=== PATIENT | female | born 1955 | race Caucasian/White ===

== ENCOUNTER 2021-10-30 11:34 | Emergency (ER) | payer MEDICARE ==
--- NOTE | 2021-10-30 12:03 | EDM.PDOC ---
ED HPI GENERAL MEDICAL PROBLEM - General Chief Complaint: General Stated Complaint: BODY ACHES, NO TASTE,NO SMELL Time Seen by Provider: 10/30/21 11:45 Source of Information: Reports: Patient, RN History Limitations: Reports: No Limitations - History of Present Illness INITIAL COMMENTS - FREE TEXT/NARRATIVE: 66 yo [employer] employee presents with body aches and a loss of smell since this past Monday. She has not been to the clinic for this. She has not been vaccinated for Covid. She denies fever or SOB. She also says she always has high BP and is not worried about it. Needs a note for work. Onset: Gradual Onset Date: 10/27/21 Duration: Day(s):, Getting Worse Location: Reports: Generalized Quality: Reports: Other Severity: Mild Improves with: Reports: None Worsens with: Reports: None Context: Reports: Other (see HPI) Associated Symptoms: Reports: Malaise, Other (anosmia). Denies: Fever/Chills Treatments NEEDLEWORKER: Reports: Other (see below) (none) - Related Data Allergies Allergy/AdvReac Type Severity Reaction Status Date / Time No Known Allergies Allergy Verified 10/30/21 11:57 Home Meds: Home Meds NK [No Known Home Meds] 10/30/21 [History] Past Medical History - Past Health History Medical/Surgical History: Denies Medical/Surgical History - Infectious Disease History Infectious Disease History: Reports: Chicken Pox Social & Family History - Tobacco Use Tobacco Use Status *Q: Never Tobacco User - Caffeine Use Caffeine Use: Reports: Coffee ED ROS GENERAL - Review of Systems Review Of Systems: See Below Constitutional: Reports: Malaise. Denies: Fever, Chills HEENT: Reports: Other (anosmia) Respiratory: Reports: No Symptoms Cardiovascular: Reports: No Symptoms GI/Abdominal: Reports: No Symptoms : Reports: No Symptoms Musculoskeletal: Reports: Other (body aches) Skin: Reports: No Symptoms Neurological: Reports: No Symptoms ED EXAM, GENERAL - Physical Exam Exam: See Below Exam Limited By: No Limitations General Appearance: Alert, WD/WN, No Apparent Distress Eye Exam: Bilateral Eye: Normal Inspection Ears: Normal External Exam, Normal Canal, Hearing Loss, Other (hearing aid on L) Ear Exam: Right Ear: TM normal (hearing aid left), Bilateral Ear: Auricle Normal Nose: Normal Inspection, No Blood Throat/Mouth: Normal Inspection, Normal Lips, Normal Oropharynx, Normal Voice, No Airway Compromise Head: Atraumatic, Normocephalic Neck: Normal Inspection Respiratory/Chest: No Respiratory Distress, Lungs Clear, Normal Breath Sounds, No Accessory Muscle Use Cardiovascular: Regular Rate, Rhythm, No Edema, Tachycardia GI/Abdominal: Soft, Non-Tender Back Exam: Normal Inspection. No: CVA Tenderness (R), CVA Tenderness (L) Extremities: Normal Inspection, Normal Range of Motion, Non-Tender, No Pedal Edema Neurological: Alert, Oriented, CN II-XII Intact, Normal Cognition, No Motor/Sensory Deficits Psychiatric: Normal Affect, Normal Mood Skin Exam: Warm, Dry, Intact, Normal Color, No Rash Course - Vital Signs Last Recorded V/S: Last Vital Signs Temp 35 C L 10/30/21 11:51 Pulse 112 H 10/30/21 11:51 Resp 18 10/30/21 11:51 BP 182/89 H 10/30/21 11:51 Pulse Ox 96 10/30/21 11:51 - Orders/Labs/Meds Labs: Laboratory Tests 10/30/21 Range/Units 11:50 SARS CoV-2 RNA Rapid ARTUR Positive H Departure - Departure Time of Disposition: 12:05 Disposition: Home, Self-Care 01 Condition: Fair Clinical Impression: COVID-19 HTN (hypertension) Qualifiers: Hypertension type: unspecified Qualified Code(s): I10 - Essential (primary) hypertension - Discharge Information *PRESCRIPTION DRUG MONITORING PROGRAM REVIEWED*: Not Applicable *COPY OF PRESCRIPTION DRUG MONITORING REPORT IN PATIENT MALINDA: Not Applicable Instructions: COVID-19 Frequently Asked Questions Referrals: PCP,None [Primary Care Provider] - Additional Instructions: Someone will call you Monday regarding a time to return for the monoclonal antibody infusion. Isolate yourself to prevent spread of your illness for the next week. Wear a mask and wash your hands or use party plan sales agent regularly when you are exposed to others. I strongly recommend you see your provider regarding management of your elevated blood pressure. Return as needed. Sepsis Event Note (ED) - Evaluation Sepsis Screening Result: Possible Sepsis Risk - Focused Exam Vital Signs: Vital Signs Temp Pulse Resp BP Pulse Ox 10/30/21 11:51 35 C L 112 H 18 182/89 H 96
== END 2021-10-30 12:16 | disposition home or self-care (01) ==
LOC: JP.ED 11:34
DX: U07.1 COVID-19 (principal); I10 Essential (primary) hypertension
CPT/HCPCS: 99283; U0002